=== PATIENT | male | born 1950 | race Caucasian/White ===

== ENCOUNTER 2017-01-14 08:15 | Day surgery (SDC) | payer OTHER, MEDICARE ==
[2017-01-08 14:02] VITALS: BMI 23.0
[2017-01-14] MEDS ORDERED: PROPOFOL 20 ML ONE ×2 (08:23)
[2017-01-14 08:35] VITALS: TEMP 98
[2017-01-14 10:34] VITALS: BP 101/65; PULSE 54
== END 2017-01-14 10:45 | disposition home or self-care (01) ==
LOC: FASU-ENDO 08:15
PROVIDERS: ATTEND Internal Medicine Gastroenterology
PROC: 0DJD8ZZ Inspection of Lower Intestinal Tract, Via Natural or Artificial Opening Endoscopic (ICD-10-PCS; principal; 2017-01-14 09:37)
DX: Z12.11 Encounter for screening for malignant neoplasm of colon (principal); K57.30 Diverticulosis of large intestine without perforation or abscess without bleeding

== ENCOUNTER 2022-01-13 19:25 | Emergency (ER) | payer OTHER, MEDICARE ==
[2022-01-13 19:39] VITALS: BP 163/91; PULSE 76; TEMP 98; BMI 23.0
[2022-01-13] MEDS ORDERED: SILVER NITRATE 75% APPLIC STCK 1 PKT EACH ONE (19:54)
== END 2022-01-13 20:32 | disposition home or self-care (01) ==
LOC: FER 19:25
DX: R04.0 Epistaxis (principal)
CPT/HCPCS: 99282-25